=== PATIENT | male | born 2000 | race African-American/Black ===

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

== ENCOUNTER 2022-09-03 03:31 | Emergency (ER) | payer MEDICAID, OTHER ==
[~2022-09-03] VITALS: Ht 167.6 cm; Wt 61.0 kg
[~2022-09-03 03:31] MED LIST: NAPR375T5 MT
[2022-09-03 03:39] VITALS: BP 126/76
== END 2022-09-03 10:21 | disposition left against medical advice (07) ==
LOC: ER 03:31
DX: Z53.21 Procedure and treatment not carried out due to patient leaving prior to being seen by health care provider (principal); M79.645 Pain in left finger(s)
CPT/HCPCS: 99281